=== PATIENT | male | born 1970 | race American Indian/Alaskan Native ===

== ENCOUNTER 2018-08-18 12:25 | Emergency (ER) | payer SELFPAY ==
--- NOTE | 2018-08-18 13:57 | Emergency Department Report ---
HPI - General Chief Complaint: Dental/Oral Time Seen by Provider: 08/18/18 13:35 - HPI HPI: This is a 47-year-old male presents to ED complaining of oral ulcers in the past 2 months. Patient is known to me as I evaluated patient last month for the same symptoms. Patient states that he used to mouthwash as instructed and did not get any relief. Patient states that he has pain in his gums and tongue and mouth. Patient states it hurts and is a little uncomfortable when he eats certain types of food He denies any fever, chills, nausea vomiting or any dental abscess. ED Past Medical Hx - Past Medical History Previous Medical History?: No - Surgical History Past Surgical History?: No - Social History Smoking Status: Never Smoker Substance Use Type: None - Medications Home Medications: Home Medications Medication Instructions Recorded Confirmed Last Taken Type Cyclobenzaprine [Flexeril 10mg] 10 mg PO TID PRN #30 tablet 10/26/14 Unknown Rx Ibuprofen [Motrin] 800 mg PO Q8H #30 tablet 10/26/14 Unknown Rx traMADol [Ultram 50 MG tab] 50 mg PO Q6HR PRN #20 tablet 10/26/14 Unknown Rx Amoxicillin/K Clav Tab [Augmentin 1 tab PO Q12HR #20 tab 08/18/18 Unknown Rx 875 mg] Chlorhexidine Mouthwash [Peridex] 15 ml MM BID #1 bottle 08/18/18 Unknown Rx Ibuprofen [Motrin] 800 mg PO Q8HR #30 tablet 08/18/18 Unknown Rx ED Review of Systems ROS: Stated complaint: MOUTH PAIN Other details as noted in HPI Comment: All other systems reviewed and negative ENT: denies: throat pain, dental pain, hearing loss, congestion Physical Exam - Physical Exam Vital Signs: Vital Signs 08/18/18 12:50 Temperature 97.8 F Pulse Rate 71 Respiratory 18 Rate Blood Pressure 134/97 O2 Sat by Pulse 96 Oximetry Physical Exam: GENERAL: Alert and oriented x3, no apparent distress, Normal Gait, atraumatic. HEAD: Head is normocephalic and a-traumatic. NOSE: Nose symetrical, Nontender,Nares appeared normal. MOUTH:Mouth is well hydrated and without lesions. Tonsils nonerythematous or swollen, Uvula midline, Tongue not elevated. Mucous membranes are moist. Posterior pharynx clear, no exudate or lesions. Patent airways., Gingival ulcers noted, also has noted a sore inside the mouth. No change from last visit. NECK: Supple. Non edematous, No carotid bruits. No lymphadenopathy or thyromegaly. No C-spine tenderness LUNGS: Symetrical with respiration, No wheezing, no rales or crackles, CTAB. HEART: S1, S2 present, regular rate and rhythm without murmur, no rubs, no gallops. ED Course Vital Signs 08/18/18 12:50 Temperature 97.8 F Pulse Rate 71 Respiratory 18 Rate Blood Pressure 134/97 O2 Sat by Pulse 96 Oximetry ED Medical Decision Making - Medical Decision Making 47-year-old male presents with gingival bacterial infection versus gingivitis versus mouth ulcers Discussed the patient was discharged home on antibiotic therapy. Discussed follow-up with the dentist. Discussed with the patient that he would need to follow-up with dentist/orthodentic Vital signs are normal patient is in no acute distress. Patient states he understands instructions and will follow Critical care attestation.: If time is entered above; I have spent that time in minutes in the direct care of this critically ill patient, excluding procedure time. ED Disposition Clinical Impression: Gingivitis, Gingival disease due to bacteria Disposition: DC-01 TO HOME OR SELFCARE Is pt being admited?: No Does the pt Need Aspirin: No Condition: Stable Instructions: Gingivitis (ED), Canker Sores (ED) Additional Instructions: Make sure to follow up with the Dentist as discussed. Take all your medications as you've been prescribed. If you have any worsening symptoms or develop new symptoms please return to ED immediately. Prescriptions: Amoxicillin/K Clav Tab [Augmentin 875 mg] 1 tab PO Q12HR #20 tab Chlorhexidine Mouthwash [Peridex] 15 ml MM BID #1 bottle Ibuprofen [Motrin] 800 mg PO Q8HR #30 tablet Referrals: [facility] [Outside] - 3-5 Days [facility] [Outside] - 3-5 Days Forms: Accompanied Note, Work/School Release Form(ED) Time of Disposition: 13:58
== END 2018-08-18 14:37 | disposition home or self-care (01) ==
LOC: ED 12:25
CPT/HCPCS: 99282